=== PATIENT | male | born 1950 | race Caucasian/White ===

== ENCOUNTER 2018-01-22 07:32 | Day surgery (SDC) | payer OTHER ==
[~2018-01-22] VITALS: Ht 177.8 cm; Wt 108.3 kg
[~2018-01-22 07:32] MED LIST: ASCORBIC ACID250 MG PO; ASPIR-LOW81 MG PO; B-COMPLEX-VITA1 EACH PO; CARVEDILOL12.5 MG PO; CENTRUM MEN'S1 EACH PO; CLONAZEPAM0.5 MG PO; HUMALOG100 UNIT/1 SC; INVOKANA300 MG PO; LAMOTRIGINE25 MG PO; LANTUS 10100 UNITS/ SC; LYRICA300 MG PO; NITROSTAT0.4 MG SL; POTASSIUM-9999 MG PO; PRAVASTATIN SOD20 MG PO; PREVACID15 MG PO; RAMIPRIL5 MG PO; RANEXA1000 MG PO; TORSEMIDE20 MG PO; TRULICITY1.5 MG/0.5 SC; VITAMIN B-6100 MG PO
[2018-01-22 19:40] VITALS: BP 139/72
[2018-01-23 00:05] VITALS: BP 109/55
[2018-01-23 05:17] VITALS: BP 133/64
[2018-01-23 05:23] LABS: BASOPHIL (%) 0.4 % (0-1); EOSINOPHIL (%) 7.2 % (0-5); EOSINOPHIL COUNT 0.5 K/uL (0-0.3); HEMATOCRIT 38.5 % (38.0-50.0); LYMPHOCYTE (%) 31.1 % (15-42); LYMPHOCYTE COUNT 2.1 K/uL (1.0-2.8); MCHC 34.8 G/DL (30.0-36.0); MCV 97.7 FL (86-99); MONOCYTE (%) 9.6 % (3-12); MONOCYTE COUNT 0.7 K/uL (0-0.8); NEUTROPHIL (%) 51.7 % (45-76); NEUTROPHIL COUNT 3.5 K/uL (1.8-6.4); PLATELET COUNT 221 K/uL (156-360); RBC DIS.WIDTH-CV 13.3 % (11.8-14.6); RED BLOOD COUNT 3.94 M/uL (4.00-5.50); WHITE BLOOD COUNT 6.8 K/uL (4.1-10.2)
[2018-01-23 05:36] LABS: HEMOGLOBIN 13.4 G/DL (12.5-16.6)
[2018-01-23 05:50] LABS: CREATININE 1.2 MG/DL (0.6-1.3); GFR ESTIMATE (CALCULATED) > 59 mL/min/ (58.99-99999); GLUCOSE 136 mg/dL (70-99); POTASSIUM 4.2 MEQ/L (3.7-5.4); SODIUM 144 MEQ/L (136-147); UREA NITROGEN (BUN) 12 mg/dL (9-23)
[2018-01-23 05:59] LABS: CHLORIDE 112 MEQ/L (99-109)
[2018-01-23 08:06] VITALS: BP 133/62
[2018-01-23] MEDS ORDERED: CLOPIDOGREL75 MG PO (10:22)
== END 2018-01-23 11:19 | disposition home or self-care (01) ==
LOC: CATH 07:32 → 4EAST 13:49 → 2SOUTH 13:49 → ENRESERV 13:50 → 4EAST 19:37
PROVIDERS: Internal Medicine Cardiovascular Disease
DX: I25.10 Atherosclerotic heart disease of native coronary artery without angina pectoris (principal); I12.9 Hypertensive chronic kidney disease with stage 1 through stage 4 chronic kidney disease, or unspecified chronic kidney disease; E11.22 Type 2 diabetes mellitus with diabetic chronic kidney disease; N18.9 Chronic kidney disease, unspecified; I25.5 Ischemic cardiomyopathy; I25.2 Old myocardial infarction; E78.5 Hyperlipidemia, unspecified; Z79.82 Long term (current) use of aspirin; Z79.02 Long term (current) use of antithrombotics/antiplatelets; Z79.4 Long term (current) use of insulin
CPT/HCPCS: 80048; 82948; 85025; 85347; 93005; C1725; C1769; C1874; C1887; C1894; G0378; J1644; J2250; J2405; J3010; J3246